=== PATIENT | female | born 1985 | race Caucasian/White ===

== ENCOUNTER 2016-12-05 16:41 | Outpatient (CLI) | payer SELFPAY ==
--- NOTE | 2016-12-05 18:21 | DIAGNOSTIC IMAGING REPORT ---
PROCEDURE: XR KNEE 4 VIEWS - LEFT INDICATION: Left knee pain TECHNIQUE: Four views. COMPARISON: None. FINDINGS: Osseous structures and joint spaces are normal. IMPRESSION: 1. Normal left knee. 2. Findings called to Dr. Palacio.
== END 2016-12-05 23:00 ==
LOC: XR SRH 16:41
DX: M25.562 Pain in left knee (principal)

== ENCOUNTER 2016-12-11 13:10 | Emergency (ER) | payer OTHER ==
--- NOTE | 2016-12-11 13:56 | DIAGNOSTIC IMAGING REPORT ---
PROCEDURE: XR KNEE 4 VIEWS - LEFT INDICATION: TRAUMA/INJURY TECHNIQUE: Four views. COMPARISON: None. FINDINGS: Osseous structures and joint spaces are normal. IMPRESSION: 1. Normal left knee.
--- NOTE | 2016-12-11 13:59 | ED ORDER SUMMARY ---
..... Patient: REJI VICTORIA OrderSheet [facility] VisitID: [id number] [address] [place] [address] 31y, F Registration Date/Time: 12/11/2016 ORDER SHEET Weight: 81.1 kg (stated) Allergies: No Known Drug Allergy GENERAL ORDERS: Knee 4V Left Urgent (13:21 12/11/2016 Rosio Au) (Ack 13:22 Annmarie ER Tech1) (14:03 Chad Barr) MEDICATION ORDERS: IV FLUIDS: ORDER SHEET NOTES: [Electronically signed by Talia Murillo P.A.-C (14:10 12/11/2016)] [Electronically signed by Jabier Mueller R.N. (14:14 12/11/2016)] [Electronically locked/signed by Jabier Mueller R.N. (14:14 12/11/2016)]
--- NOTE | 2016-12-11 13:59 | ED NURSING NOTES ---
Clinical Report - Nurses [facility] [address] [place] [address] 12/11/2016 13:12 Patient: REJI VICTORIA TRIAGE Triage time 13:16 Dec 11 2016. Acuity: LEVEL 4. Chief Complaint: INJURY TO LEFT KNEE. Alert. No acute distress. --13:22 Jabier Mueller R.N. 13:15 12/11/16. BP: 101/57. HR: 73. RR: 18. O2 saturation: 100% on room air. Temp: 98.2 F. Pain level now: 11/08. --13:22 Jabier Mueller R.N. SEPSIS SCREEN: Sepsis Screen. Negative (no infection suspected/documented). --13:42 Jabier Mueller R.N. Weight: 81.1 kg stated. Height/Length: 63 inches Per Patient. BMI: 31.7. --13:14 Jabier Mueller R.N. Medications Naproxen Oral. --13:20 Jabier Mueller R.N. Hydroxyzine (Pt not currently taking). --13:21 Jabier Mueller R.N. Allergies No Known Drug Allergy. --13:20 Jabier Mueller R.N. History Arrived by private vehicle. Historian: patient. Accompanied by family. This occurred today. Mechanism of injury: fell. ( Pt injured her knee on November 21 in a football game, was seen and no imaging was done. She saw her PCP who then had images completed, stated she tore her MCL. Further imaging is recommended (MRI) but Pt is waiting for insurance approval.). She has had trouble walking and weakness. Treatment [employer]INTE[employer]CE TECHNICIAN: (Naprosyn). PAST MEDICAL HX: Tetanus status: up-to-date. Immunizations: up-to-date. Last normal menstrual period- October 2016. SOCIAL HX: Never smoker. Occasional alcohol use. No drug use. No infectious disease exposure. ABUSE ASSESSMENT: No report of abuse. SELF HARM ASSESSMENT: A self harm assessment was performed. The patient answered "no" to the question "Have you recently felt down, depressed, or hopeless?" and "Are you here because you tried to hurt yourself?". FALL RISK ASSESSMENT: Fall risk assessment completed. No fall risk identified. NUTRITIONAL RISK ASSESSMENT: The nutritional risk assessment revealed no deficiencies. FUNCTIONAL ASSESSMENT: Functional assessment: no impairments noted. LEARNING NEEDS ASSESSMENT: The learning needs assessment revealed no barriers. SKIN INTEGRITY ASSESSMENT: Skin integrity risk assessment completed. No skin integrity risk identified. --13:22 Jabier Mueller R.N. PROBLEMS: Anxiety Reaction. Muscle Spasm. --13:21 Jabier Mueller R.N. ADDITIONAL SURGERIES: Tubal Ligation. --13:21 Jabier Mueller R.N. Interventions ID band on patient. To room. --13:22 Jabier Mueller R.N. PHYSICAL ASSESSMENT Ambulatory to room. GENERAL / NEURO / PSYCH: Oriented X 4. Alert. Appears in no acute distress. EXTREMITIES: Limited ROM present. Capillary refill is less than 2 seconds in the extremities. Extremity pulses are within normal limits. Pain with weight bearing. Limping gait. Neuro-vascular status intact to the extremity. Left knee: tenderness, swelling and small and superficial abrasion (Pain). SKIN: Skin is warm and dry. --13:24 Jabier Mueller R.N. NURSING PROGRESS NOTES Cold pack applied. Extremity elevated. Reassurance given. Two patient identifiers checked. Call light placed in reach. Bed placed in lowest position. Patient ready for evaluation- PA notified. ( PA already in to assess Pt, XR's ordered.). --13:24 Jabier Mueller R.N. DISPOSITION / DISCHARGE Departure time: 14:05 Dec 11 2016. Condition at departure: stable. The goals identified in the patient's plan of care were met. No learning barriers present. Discharge instructions provided and reviewed with the patient. Treatments reviewed (Ice, elevation, brace). Reviewed referral to a primary care physician for followup. Patient verbalized understanding. Written instructions provided in Telugu. The patient was discharged home. She left the Emergency Department ambulatory and via private vehicle. Patient driving. ( Pt dc'd in stable condition, ambulatory, knee brace in place that Pt arrived to ED with, verbalized understanding of findings and DC POC.). --14:05 Jabier Mueller R.N. 14:05 12/11/16. BP: deferred. HR: deferred. RR: deferred. O2 saturation: deferred. Temp: deferred. Pain level now: 11/08. --14:06 Jabier Mueller R.N. Locked/Released at 12/11/2016 14:14 by Jabier Mueller R.N.
--- NOTE | 2016-12-11 13:59 | ED CLINICAL REPORT ---
Clinical Report - Physicians/Mid Levels [facility] [address] [place] [address] 12/11/2016 13:12 Patient: REJI VICTORIA Time Seen: 13:15 Andrea 12 2016. Arrived- By private vehicle. Historian- patient. HISTORY OF PRESENT ILLNESS Chief Complaint: Injury to left knee. The injury happened just prior to arrival. Occurred at home. The patient sustained a direct blow. (she reports late October sustained injury to her left lower extremity, has had an x-ray and has been wearing a brace and median seen by her primary care physician, waiting for MRI referral, today all walking, fell onto the left knee, with flexion, and following onto the left aspect.). REVIEW OF SYSTEMS All systems otherwise negative, except as recorded above. PAST HISTORY The patient has had a prior injury to the same area. Problems: Anxiety Reaction. Muscle Spasm. Additional Surgeries: Tubal Ligation. Medications: Hydroxyzine (Pt not currently taking). Naproxen Oral. Allergies: No Known Drug Allergy. SOCIAL HISTORY Never smoker. No drug use. ADDITIONAL NOTES The nursing notes have been reviewed. PHYSICAL EXAM Vital Signs: 12/11/2016 13:15 BP: 101/57. HR: 73. RR: 18. O2 saturation: 100%. Temp: 98.2 F. Pain level now: 5/10. Appearance: Alert. No acute distress. Head: Head atraumatic. Neck: Normal inspection. Neck supple. CVS: Normal heart rate and rhythm. Heart sounds normal. Respiratory: No respiratory distress. Breath sounds normal. Skin: Skin warm. (small medial abrasion of knee noted. Left). Extremities: Left thigh. No tenderness or swelling. Left knee: mild tenderness located in the medial joint line. No ligamentous laxity present. No joint effusion. Left leg. No tenderness or swelling. Left ankle. No tenderness or laceration. Gait: Limping gait. Neuro, Vascular and Tendons: Vascular status intact. No pulse deficit present. Motor intact. No functional tendon deficit. Neuro: Oriented X 3. LABS, X-RAYS, AND EKG Lt Knee X-ray: (IMPRESSION: 1. Normal left knee. Electronically Final signed by:Emile Blum MD 12/11/2016 1:57:27 PM). PROGRESS AND PROCEDURES Course of Care: she has any immobilizer, and has and is awaiting follow-up for MRI. Able to ambulate, will continue to do activity as home as prescribed, patient taken naproxen, encouraged to continue doing so as well as icing. No new obvious changes of injury, likely exacerbation of her previous medial sprain, no signs of any fracture. Patient is stable. Mechanical fall, no other injury to her head or neck. Symptoms better. Patient/family counseled. Disposition: Discharged. CLINICAL IMPRESSION Sprain of the medial collateral ligament of the left knee. Contusion to the left knee. INSTRUCTIONS Apply ice. Use crutches. Wear knee immobilizer. Elevate affected areas above chest level. Your Current Medications: CONTINUE TAKING THE FOLLOWING MEDICATIONS: Hydroxyzine (Pt not currently taking)*. Naproxen Oral. Follow-up: Follow up with your doctor as scheduled. (Electronically signed by Talia Murillo P.A.-C 12/11/2016 14:10)
--- NOTE | 2016-12-11 13:59 | ED ORDER SUMMARY ---
..... Patient: REJI VICTORIA OrderSheet [facility] VisitID: [id number] [address] [place] [address] 31y, F Registration Date/Time: 12/11/2016 ORDER SHEET Weight: 81.1 kg (stated) Allergies: No Known Drug Allergy GENERAL ORDERS: Knee 4V Left Urgent (13:21 12/11/2016 Rosio Au) (Ack 13:22 Annmarie ER Tech1) (14:03 Chad Barr) MEDICATION ORDERS: IV FLUIDS: ORDER SHEET NOTES: [Electronically signed by Talia Murillo P.A.-C (14:10 12/11/2016)] [Electronically signed by Jabier Mueller R.N. (14:14 12/11/2016)] [Electronically locked/signed by Jabier Mueller R.N. (14:14 12/11/2016)]
--- NOTE | 2016-12-11 14:14 | ED DISCHARGE INSTRUCTIONS ---
Patient: REJI VICTORIA General Instructions [facility] VisitID: [id number] [place] [address] 31y, F Registration Date/Time: 12/11/2016 Sprain of the medial collateral ligament of the left knee. Contusion to the left knee. INSTRUCTIONS Apply ice. Use crutches. Wear knee immobilizer. Elevate affected areas above chest level. Your Current Medications: CONTINUE TAKING THE FOLLOWING MEDICATIONS: Hydroxyzine (Pt not currently taking)*. Naproxen Oral. Follow-up: Follow up with your doctor as scheduled. ADDITIONAL INFORMATION Sprain, Knee A sprain is an injury to the ligaments or capsule that holds a joint together. There are no broken bones. Most sprains take three to six weeks to heal. If the ligament is completely torn (severe sprain), it can take months to recover from. Most knee sprains are treated with a splint, knee immobilizer or elastic wrap for support. Severe sprains may require surgery. Home care The following guidelines will help you care for your injury at home: Stay off the injured leg as much as possible until you can walk on it without pain. If you have a lot of pain with walking, crutches or a walker may be prescribed. (These can be rented or purchased at many pharmacies and surgical or orthopedic supply stores). Follow your doctor's advice regarding when to begin bearing weight on that leg. Keep your leg elevated to reduce pain and swelling. When sleeping, place a pillow under the injured leg. When sitting, support the injured leg so it is level with your waist. This is very important during the first 48 hours. Apply an ice pack (ice cubes in a plastic bag, wrapped in a towel) over the injured area for 20 minutes every 12 hours the first day. You can place the ice pack directly over the splint. If a Velcro knee immobilizer was applied, you can open this to apply the ice pack directly to the knee. Continue with ice packs 34 times a day for the next two days, then as needed for the relief of pain and swelling. You may use acetaminophen or ibuprofen to control pain, unless another pain medicine was prescribed. If you have chronic liver or kidney disease or ever had a stomach ulcer or GI bleeding, talk with your doctor before using these medicines. If you were given a splint, keep it completely dry at all times. Bathe with your splint out of the water, protected with a large plastic bag, rubber-banded at the top end. If a fiberglass splint gets wet, you can dry it with a hair-dryer. If you have a Velcro knee immobilizer, you can remove this to bathe, unless told otherwise. Follow-up care Follow up with your doctor as advised. Any X-rays you had today dont show any broken bones, breaks, or fractures. Sometimes fractures dont show up on the first X-ray. Bruises and sprains can sometimes hurt as much as a fracture. These injuries can take time to heal completely. If your symptoms dont improve or they get worse, talk with your doctor. You may need a repeat X-ray. When to seek medical care Get prompt medical attention if any of the following occur: The plaster cast or splint becomes wet or soft The fiberglass cast or splint remains wet for more than 24 hours Pain or swelling increases Toes become cold, blue, numb or tingly Contusion:Lower Extremity You have a CONTUSION of your LOWER extremity (leg, knee, ankle, foot, or toes). This causes local pain, swelling and sometimes bruising. There are no broken bones. This injury may take from a few days to a few weeks to heal. Home Care: 1) Keep your leg elevated to reduce pain and swelling. When sleeping, place a pillow under the injured leg. When sitting, support the injured leg so it is level with your waist. This is very important during the first 48 hours. 2) If CRUTCHES have been advised, do not bear full weight on the injured leg until you can do so without pain. You may return to sports when you are able to hop and run on the injured leg without pain. 3) Apply an ice pack (ice cubes in a plastic bag, wrapped in a towel) over the injured area for 20 minutes every 1-2 hours the first day for pain relief. Continue this 3-4 times a day until the pain and swelling goes away. 4) You may use acetaminophen (Tylenol) or ibuprofen (Motrin, Advil) to control pain, unless another pain medicine was prescribed. [ NOTE : If you have chronic liver or kidney disease or ever had a stomach ulcer or GI bleeding, talk with your doctor before using these medicines.] Follow Up with your doctor or this facility if you are not starting to improve within the next THREE days. [NOTE: If X-rays were taken, they will be reviewed by a radiologist. You will be notified of any new findings that may affect your care.] Get Prompt Medical Attention if any of the following occur: -- Pain or swelling increases -- Toes become cold, blue, numb or tingly -- Redness, warmth or drainage from the skin You have been given the following additional information: Knee Sprain Contusion, Lower Extremity (Electronically signed by Talia Murillo P.A.-C 12/11/2016 14:10)
--- NOTE | 2016-12-11 14:14 | ED MED RECONCILIATION SUMMARY ---
Patient: REJI VICTORIA Medication Reconciliation Report [facility] VisitID: [id number] [address] [place] [address] 31y, F Registration Date/Time: 12/11/2016 Weight: 81.1 kg Height/Length: 63 in. BMI: 31.7 ALLERGIES: No Known Drug Allergy The patient's Home Medications are listed below: CONTINUE TAKING THE FOLLOWING MEDICATIONS: Hydroxyzine (Pt not currently taking) Naproxen Oral The source(s) of the original Home Medication information: Not obtained. The following Medications were given to the patient in the Emergency Department: None. The following Medications were prescribed to the patient: None.
--- NOTE | 2016-12-11 14:14 | ED MAR SUMMARY ---
..... Medication Administration Record [facility] [address] [place] [id number] Patient: REJI VICTORIA Visit ID: [id number] 31y, F Weight: 81.1 kg Height/Length: 63 in BMI: 31.7 ALLERGIES: No Known Drug Allergy
--- NOTE | 2016-12-11 14:14 | ED MED RECONCILIATION SUMMARY ---
Patient: REJI VICTORIA Medication Reconciliation Report [facility] VisitID: [id number] [address] [place] [address] 31y, F Registration Date/Time: 12/11/2016 Weight: 81.1 kg Height/Length: 63 in. BMI: 31.7 ALLERGIES: No Known Drug Allergy The patient's Home Medications are listed below: CONTINUE TAKING THE FOLLOWING MEDICATIONS: Hydroxyzine (Pt not currently taking) Naproxen Oral The source(s) of the original Home Medication information: Not obtained. The following Medications were given to the patient in the Emergency Department: None. The following Medications were prescribed to the patient: None.
--- NOTE | 2016-12-11 14:14 | ED MAR SUMMARY ---
..... Medication Administration Record [facility] [address] [place] [id number] Patient: REJI VICTORIA Visit ID: [id number] 31y, F Weight: 81.1 kg Height/Length: 63 in BMI: 31.7 ALLERGIES: No Known Drug Allergy
== END 2016-12-11 14:04 | disposition home or self-care (01) ==
LOC: ED SRH 13:10
DX: S83.412A Sprain of medial collateral ligament of left knee, initial encounter (principal); W18.30XA Fall on same level, unspecified, initial encounter; Y93.61 Activity, american tackle football; Y99.9 Unspecified external cause status; Y92.9 Unspecified place or not applicable

== ENCOUNTER 2016-12-12 12:38 | Outpatient (CLI) | payer OTHER ==
--- NOTE | 2016-12-12 14:26 | DIAGNOSTIC IMAGING REPORT ---
PROCEDURE: MR LOWER EXT JOINT WO CONT-LT INDICATION: LT medial KNEE PAIN TECHNIQUE: PD axial, T1 and PD fat sat coronal, PD and PD fat sat sagittal, and sagittal oblique STIR sequence through the ACL. COMPARISON: Plain films 12/11/2016 FINDINGS: Menisci: Intact. No parameniscal cyst. Ligaments: Cruciate and collateral ligaments are intact. Extensor mechanism: A slight elevation and lateral subluxation of the patella. Distal quadriceps, patellar tendons, and retinacular fibers are all intact. Osseous structures and articular surfaces: Mild diffuse medial and lateral compartment cartilage thinning and fissuring without focal full-thickness defect. Minimal cartilage thinning in the patellofemoral compartment. Marrow signal is normal. Fluid, soft tissues, and joint space: Minimally increased amount of joint fluid. No Iyer's cyst. The muscles are normal in bulk and signal. Tendinous attachments appear normal. No bursitis. No visible intra-articular loose bodies. IMPRESSION: 1. Mild medial and lateral compartment chondromalacia. 2. No MR evidence of acute injury.
== END 2016-12-12 23:00 ==
LOC: MRI SRH 12:38
DX: M94.262 Chondromalacia, left knee (principal)